=== PATIENT | female | born 1940 | race Caucasian/White ===

== ENCOUNTER → 2018-08-30 | Outpatient (CLI) | payer OTHER | LOC: M.RAD 08-11 16:42 | DX: Z12.31 Encounter for screening mammogram for malignant neoplasm of breast (principal); M81.0 Age-related osteoporosis without current pathological fracture ==

== ENCOUNTER → 2018-09-06 | Outpatient (CLI) | payer OTHER | LOC: M.RAD 09-02 13:20 | DX: R92.2 Inconclusive mammogram (principal) ==

== ENCOUNTER → 2018-12-30 | Outpatient (CLI) | payer OTHER | LOC: M.RAD 14:52 | DX: M48.54XA Collapsed vertebra, not elsewhere classified, thoracic region, initial encounter for fracture (principal); M51.36 Other intervertebral disc degeneration, lumbar region; I70.0 Atherosclerosis of aorta ==

== ENCOUNTER → 2019-11-29 | Outpatient (CLI) | payer OTHER ==
[~2019-11-29] MED LIST: CALCIUM +D & M1 EACH PO; HYDROCODON-ACE1 EAC7 PO; LIPITOR40 MG PO; MULTI VITAMIN1 EACH PO; NEURONTIN100 MG PO; VITAMIN D-40010 MCG PO; XANAX 0.5 MG0.5 MG PO; ZESTRIL20 MG PO
--- NOTE | 2019-12-22 08:38 | PAINCON ---
[address] [address] PAIN MANAGEMENT CONSULTATION Name: KINA VERDUGO [facility] [id number] Admission: 11/29/19 Attend Phys: Laura Ojeda MD Discharge: Date of : 44 Report #: [id number] THIS REPORT FOR: //name// cc: Faiza Johnson MD, Katrina MD ~ THIS REPORT FOR: //name// CC: Faiza Ojeda DATE OF SERVICE: 11/29/2019 CHIEF COMPLAINT: Low back and buttocks pain with weakness in the legs. HISTORY: The patient is a 79-year-old female who has been referred to the pain clinic for evaluation. The patient is experiencing increased pain in the low back area. It is radiating down into both legs. The patient feels that she may fall because of the weakness associated with. She also notes an ache in her legs, particularly when standing and cooking. She feels that her balance may be getting somewhat worse as well. She feels that there is some weakness and sometimes finds it difficult to walk in a straight line. She does ambulate with use of a cane. She has used hydrocodone in the past and noticed some improvement in the pain. Has had some difficulty getting in and out of the bathtub. She has used her hands to help lift her legs. She has used a TENS unit in the past. She has also experienced some weakness in her left arm with some numbness in her last 3 fingers. She does have a history of lumbar spondylosis. She has on occasion needed hydrocodone to help decrease her pain. Her sometimes gives this to her 30 minutes prior to getting out of bed. She often lies down to rest during the day to help ease her pain. ALLERGIES: No known drug allergies. CURRENT MEDICATIONS: Lipitor 10 mg, lisinopril 20 mg, alprazolam 0.5 mg, vitamin D, hydrocodone 5/325 b.i.d., calcium, gabapentin 100 mg a.m. and 200 mg at bedtime. PAST MEDICAL HISTORY: Hyperlipidemia, hypertension, anxiety, vitamin D deficiency, chronic low back pain, nicotine dependence, acute cystitis, fibromyalgia, osteoporosis, calculus in renal pelvis, colon polyps, diabetes type 2 without complications, and irritable bowel syndrome. PAST SURGICAL HISTORY: Kidney stone removal, cervical spine surgery and disk repair, cervical surgery in 1990 disk 6th through 7th, oral surgery. 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 She is not working at this juncture and has not worked in the last 13 [place] [address] PAIN MANAGEMENT CONSULTATION Name: KINA VERDUGO MICHAELLE Room: [facility]#: [id number] Admission: 11/29/19 Attend Phys: Laura Ojeda MD Discharge: Date of : 44 Report #: [id number] REVIEW OF SYSTEMS: Per HPI. DIAGNOSTIC DATA: MRI of the lumbar spine dated 10/25/2019. 1. At T12-L1 there is minimal paracentral disk bulging without focal disk herniation, central canal stenosis or neural foraminal stenosis. Thecal sac 1.5 cm AP. 2. L1-L2, minimal annular bulging. Thecal sac 1.2 cm AP. 3. L2-L3, minimal bulging. Thecal sac 1.1 cm AP. 4. L3-L4, mild bilateral facet ligamentum hypertrophy. Minimal annular bulging noted. Mild narrowing of the anterior inferior portion of the neural foramen bilaterally. Thecal sac 1.2 cm. 5. L4-L5, there is bilateral facet and ligamentum flavum hypertrophy changes. Thecal sac 1.1 cm AP. 6. L5-S1, there is a moderate right and mild left degenerative hypertrophic change. No evidence of disk herniation, central canal stenosis or neural foraminal stenosis. Thecal sac 1.1 cm AP. Impression: 1. Chronic anterior wedge compression fracture of the T12 vertebral body with approximately 50% loss of anterior vertebral body height, similar in appearance to CT examination 12/17/2014. 2. Disk endplate and facet degenerative change. There is no focal disk herniation, central canal stenosis or neural foraminal narrowing. PAIN CLINIC ASSESSMENT/PQRS: 1. The patient is not being treated for osteoarthritis or rheumatoid arthritis. 2. Height 5 feet 0, weight 146 pounds, BMI is 29.1. 3. Vital signs: Blood pressure 139/82, heart rate 68, respiratory rate 16, room air saturation 95%, temperature 98.0. 4. Pain intensity 8/10. 5. Fall history: The patient has not fallen in the last 3 months, but does have some perception of weakness in her legs. 6. Blood thinner: The patient is not on a blood thinning medication. 7. Hypertension: The patient is being treated for hypertension. 8. Opioids greater than 6 weeks: The patient receives medication from her primary. 9. Risk assessment tool: Low for opioid use. 10. Functional assessment tool: Reviewed with score of 49/70. 11. Recreational drug use: The patient denies. 12. Tobacco: The patient has smoked in the past. 13. Alcohol: The patient denies frequent use of alcoholic beverages. PHYSICAL EXAMINATION: GENERAL: The patient is a well-developed, well-nourished white female, appears her stated age. She is alert and oriented x 3. [place] [address] PAIN MANAGEMENT CONSULTATION Name: KINA VERDUGO Room: [facility]#: [id number] Admission: 11/29/19 Attend Phys: Laura Ojeda MD Discharge: Date of : 44 Report #: [id number] Speech is fluent. HEENT: Normocephalic, atraumatic. Extraocular eye muscles intact. Sclerae nonicteric. Mucous membranes are moist. The patient has a facial covering in place. NECK: Without adenopathy or JVD. HEART: Regular rate. LUNGS: Clear to auscultation. ABDOMEN: Nontender. EXTREMITIES: Upper extremity muscle strength judged to be 5-/5 for the upper motor neurons. The patient has hyperreactive deep tendon reflexes with biceps at +3 bilaterally. The patient has pain and discomfort in lower portion of her back with pain that radiates down into the lower portion of her back and buttocks area as well as across the left and right paraspinous areas. She has perception of weakness in the lower extremities. This radiates down into the back of both legs. Deep tendon reflexes are +4 at the knees and difficult to assess at the ankles secondary to the patient's inability to comply. IMPRESSION: 1. Low back pain with perception of weakness in the lower extremities. 2. Hyperlipidemia. 3. Hypertension. 4. Anxiety. 5. Vitamin D deficiency. 6. Chronic low back pain. 7. Nicotine dependence. 8. Acute cystitis. 9. Fibromyalgia. 10. Osteoporosis. 11. Calculus in renal pelvis. 12. Colon polyps. 13. Diabetes type 2 without complications. 14. Irritable bowel syndrome. RECOMMENDATIONS: At this point, the patient complains of problems with her balance. I think it would be reasonable to have her be evaluated and given exercises by physical therapy. She is not today showing significant complaints of lumbar radicular pain and has more weakness in the lower extremities. She will go to physical therapy 3 times a week for 3 weeks and return to the Pain Clinic. We would like to thank you for letting us participate in her care. We may increase her medications of gabapentin from 100 mg a.m. and 200 mg at bedtime [place] [address] PAIN MANAGEMENT CONSULTATION Name: KINA VERDUGO MICHAELLE Room: [facility]#: [id number] Admission: 11/29/19 Attend Phys: Laura Ojeda MD Discharge: Date of : 44 Report #: [id number] We would like to thank you for letting us participate in her care. We hope she continues to improve. <ELECTRONICALLY SIGNED> By: Laura Ojeda MD 12/22/19 [id number]. Jayjay Ojeda MD /KAVITHA
== END ==
LOC: M.PC 13:20
PROVIDERS: ATTEND Anesthesiology Pain Medicine
DX: M54.5 Low back pain (principal); R53.1 Weakness; E78.5 Hyperlipidemia, unspecified; I10 Essential (primary) hypertension; F41.9 Anxiety disorder, unspecified; E55.9 Vitamin D deficiency, unspecified; G89.29 Other chronic pain; M79.7 Fibromyalgia; M81.0 Age-related osteoporosis without current pathological fracture; K63.5 Polyp of colon; N20.0 Calculus of kidney; E11.9 Type 2 diabetes mellitus without complications; K58.9 Irritable bowel syndrome, unspecified; N30.00 Acute cystitis without hematuria; F17.200 Nicotine dependence, unspecified, uncomplicated; Z79.899 Other long term (current) drug therapy

== ENCOUNTER → 2020-12-27 | Outpatient (CLI) | payer OTHER ==
[~2020-12-27] MED LIST changes: +MEDROLDOSEPACK PO
== END ==
LOC: M.PC 11:24
PROVIDERS: ATTEND Anesthesiology Pain Medicine
DX: G89.29 Other chronic pain (principal); N30.00 Acute cystitis without hematuria; M54.5 Low back pain; E78.5 Hyperlipidemia, unspecified; I10 Essential (primary) hypertension; E55.9 Vitamin D deficiency, unspecified; N20.0 Calculus of kidney; K63.5 Polyp of colon; E11.9 Type 2 diabetes mellitus without complications; K58.9 Irritable bowel syndrome, unspecified; M79.7 Fibromyalgia; F41.8 Other specified anxiety disorders

== ENCOUNTER → 2021-02-26 | Outpatient (CLI) | payer OTHER | LOC: M.RAD 13:24 | PROVIDERS: ATTEND Family Medicine | DX: Z12.31 Encounter for screening mammogram for malignant neoplasm of breast (principal); Z13.820 Encounter for screening for osteoporosis; M81.0 Age-related osteoporosis without current pathological fracture ==